=== PATIENT | female | born 1940 | race Caucasian/White ===

== ENCOUNTER 2017-10-06 11:44 | Emergency (ER) | payer MEDICARE ==
--- OUTSIDE RECORDS SUMMARY | 2017-10-06 11:51 | XMS REPORT ---
:1940 External Reference #:[id number] Author Organization [facility] Address [address] [place] [address] Phone [phone] Care Team Providers Name Role Phone Sanam Iglesias Primary Care Physician Unavailable Payers Type Date Identification Numbers Payment Provider Subscriber Medicare Primary Effective: Policy Number: Medicare [place] Alix Mendes 2006 [id number] PayID: [id number] [address] [address] [place] [address] Medigap Part B Policy Number: [facility] Alix Mendes [id number] PayID: [id number] [address] [place] [address] Problems Date Description Provider Status Onset: 09/08/2012 Disorder of bone TERRI Gan Active Family History Date Family Member(s) Problem(s) Comments Father due to s/p fall at age 63 () Mother due to Pneumonia () Number of Children 2 First Daughter A&W Second Daughter A&W Number of Siblings Siblings: 2 First Brother Heart Disease First Brother due to NC () First Brother Lung Cancer First Brother CABG First Brother Back Surgery Second Brother Heart Disease Second Brother CABG Second Brother Back Surgery Second Brother fistula Paternal Grandfather due to Suicide () Paternal Grandmother due to Old Age () Maternal Grandfather due to Unknown Causes () Maternal Grandmother due to Kidney Disease () Social History Type Date Description Comments Education Highest level of education completed is a master's degree Marital Status Patient is Living Situation Lives with spouse Diet Diet is healthy and well balanced 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 Cigarette Use Never smoked cigarettes Alcohol Drinks alcohol occasionally Smoking Patient has never smoked Drug Use Denies drug use Daily Caffeine occ coffee Exercise Type/Frequency Current Exercises regularly Seat Belt/Car Seat Always uses a seat belt Currently Active The patient is currently not sexually active Contraceptive Methods Current methods of control used include tubal ligation STD's No STD history Allergies, Adverse Reactions, Alerts Date Description Reaction Status Severity Comments 05/19/2007 Erythromycin active 11/19/2012 Bee Sting active 09/22/2014 Spider Bites active 08/21/2016 Ticks active Medications Medication Date Status Form Strength Qnty SIG Indications Ordering Provider Premarin 09/26/ Active Cream 0.625mg/G 30gm use at N95.2 Bria 2013 M bedtime 2x qw Nhan, VICTOR MANUEL Aspirin Low 00/ Active Unknown Strength 0000 Magnesium 00/ Active Unknown 0000 Co Q-10 / Active Unknown 0000 Glucosamine / Active Unknown Sulfate Maximum 0000 Potency Vitamin D-1000 / Active Unknown Maximum 0000 Strength Multivitamins 00/ Active Unknown 0000 Diltiazem CD 00/ Active Caps ER 120mg 1 by mouth Unknown 0000 24HR every day Atorvastatin / Active Tablets 40mg 1 by mouth Unknown Calcium 0000 every day Brilinta / Active Unknown 0000 Fosamax 11/29/ Hx Tablets 70mg 12tab Take One Catarina 2013 - Tablet By Jump, 09/22/ Mouth Once ANP-C 2014 Weekly On An Empty Stomach as Directed Physical 03/19/ Hx please 618.01 Catarina Therapy 2012 - evaluate pt Jump, 09/02/ for urge ANP-C 2013 incontinence and ways to cope with this Vagifem 09/26/ Hx Tablets 10mcg 24tab use 1 tablet 627.3 Catarina 2012 - s 2x qw Mari, 09/26/ ANP-C 2012 Estrace 09/09/ Hx Cream 0.1mg/GM 1Tube use 2x q week 627.3 Sharla 2012 - Ortega 09/09/ 2012 Premarin 09/09/ Hx Cream 0.625mg/G 1Tube use hs 2x q 627.3 Sharla 2012 - M week Ortega 09/26/ 2012 Vagifem 09/08/ Hx Tablets 10mcg 24tab use 1 tablet 627.3 Catarina 2012 - s 2x qw , 09/09/ ANP-C 2012 Alendronate 07/22/ Hx Tablets 70mg 12tab take 1 tablet Catarina Sodium 2011 - s by mouth Jump, 11/29/ every week on ANP-C 2013 empty stomach as directed Physical Hx please 788.69 Catarina Therapy 2010 - evaluate and Jump, 07/22/ treat for ANP-C 2010 urinary incontinence. Fosamax 08/16/ Hx Tablets 35mg 1mo 1 po qw Catarina 2009 - , 07/22/ ANP-C 2010 Boniva 07/19/ Hx Tablets 150mg 1tabs 1 po qm Catarina 2009, ANP-C 2009 Actonel 06/27/ Hx Tablets 150mg 1tabs 1 po qm Catarina 2009 - , 07/19/ ANP-C 2009 Actonel 05/21/ Hx Tablets 35mg 12tab 1 po qweek Catarina 2005 - s , 06/27/ ANP-C 2009 Actonel 00/00/ Hx Unknown 2005 Multivitamins 00/00/ Hx Unknown 2009 Calcium 00/00/ Hx Unknown 2007 Calcium With D 00/ Hx Unknown 2014 Fish Oil 00/00/ Hx Unknown 2012 Red Yeast Rice /00/ Hx Unknown 2014 Alendronate // Hx Unknown Sodium 2011 Fish Oil /00/ Hx Unknown 2016 Vitamin D3 00/00/ Hx Unknown 2014 Calcium Citrate 00/00/ Hx Unknown + 2014 Red Yeast Rice 00/00/ Hx Unknown 2016 Brilinta 00/ Hx Tablets 90mg Unknown 2017 Vital Signs Date Vital Result Comment 09/11/2017 BP Systolic 110 mmHg BP Diastolic 70 mmHg Height 59.5 inches 4'11.50" Weight 111.00 lb BMI (Body Mass Index) 22.0 kg/m2 Last Menstrual Period 0231472 2 Parity 2 03/25/2017 BP Systolic 100 mmHg BP Diastolic 58 mmHg Height 59.5 inches 4'11.50" Weight 111.00 lb BMI (Body Mass Index) 22.0 kg/m2 Last Menstrual Period 6315793 2 Parity 2 08/21/2016 BP Systolic 106 mmHg BP Diastolic 60 mmHg Height 59.5 inches 4'11.50" Weight 110.00 lb BMI (Body Mass Index) 21.8 kg/m2 Last Menstrual Period 3944777 2 Parity 2 05/23/2016 BP Systolic 108 mmHg BP Diastolic 62 mmHg Height 59.5 inches 4'11.50" Weight 113.00 lb BMI (Body Mass Index) 22.4 kg/m2 Last Menstrual Period 4745985 2 Parity 2 01/12/2016 BP Systolic 104 mmHg BP Diastolic 62 mmHg Height 59.5 inches 4'11.50" Weight 119.00 lb BMI (Body Mass Index) 23.6 kg/m2 Last Menstrual Period [id number] 2 Parity 2 08/22/2015 BP Systolic 108 mmHg BP Diastolic 68 mmHg Height 59.5 inches 4'11.50" Weight 117.00 lb BMI (Body Mass Index) 23.2 kg/m2 Last Menstrual Period 2426509 2 Parity 2 04/05/2015 BP Systolic 104 mmHg BP Diastolic 66 mmHg Height 59.5 inches 4'11.50" Weight 118.00 lb BMI (Body Mass Index) 23.4 kg/m2 Last Menstrual Period 7673849 2 Parity 2 12/28/2014 BP Systolic 112 mmHg BP Diastolic 64 mmHg Height 59.5 inches 4'11.50" Weight 118.00 lb BMI (Body Mass Index) 23.4 kg/m2 Last Menstrual Period 1620992 2 Parity 2 09/22/2014 BP Systolic 110 mmHg BP Diastolic 60 mmHg Height 59.5 inches 4'11.50" Weight 118.00 lb BMI (Body Mass Index) 23.4 kg/m2 Last Menstrual Period 6759861 2 Parity 2 06/29/2014 BP Systolic 110 mmHg BP Diastolic 62 mmHg Height 59.5 inches 4'11.50" Weight 121.00 lb BMI (Body Mass Index) 24.0 kg/m2 Last Menstrual Period 9669566 2 Parity 2 04/06/2014 BP Systolic 106 mmHg BP Diastolic 66 mmHg Height 59.5 inches 4'11.50" Weight 124.00 lb BMI (Body Mass Index) 24.6 kg/m2 Last Menstrual Period 7909285 2 Parity 2 12/23/2013 BP Systolic 108 mmHg BP Diastolic 60 mmHg Height 59.5 inches 4'11.50" Weight 120.00 lb BMI (Body Mass Index) 23.8 kg/m2 Last Menstrual Period 9604198 2 Parity 2 09/22/2013 BP Systolic 108 mmHg BP Diastolic 70 mmHg Height 59.5 inches 4'11.50" Weight 120.00 lb BMI (Body Mass Index) 23.8 kg/m2 Last Menstrual Period 9355208 2 Parity 2 09/02/2013 BP Systolic 112 mmHg BP Diastolic 66 mmHg Height 59.5 inches 4'11.50" Weight 118.00 lb BMI (Body Mass Index) 23.4 kg/m2 Last Menstrual Period 1306163 2 Parity 2 03/19/2013 BP Systolic 110 mmHg BP Diastolic 68 mmHg Height 59.5 inches 4'11.50" Weight 119.00 lb BMI (Body Mass Index) 23.6 kg/m2 2 Parity 2 11/19/2012 BP Systolic 120 mmHg BP Diastolic 72 mmHg Height 59.5 inches 4'11.50" Weight 119.00 lb BMI (Body Mass Index) 23.6 kg/m2 10/20/2012 BP Systolic 115 mmHg BP Diastolic 62 mmHg Height 59.5 inches 4'11.50" Weight 118.00 lb BMI (Body Mass Index) 23.4 kg/m2 2 Parity 2 09/08/2012 BP Systolic 100 mmHg BP Diastolic 62 mmHg Height 60 inches 5'0" Weight 118.00 lb BMI (Body Mass Index) 23.0 kg/m2 2 Parity 2 08/05/2012 BP Systolic 106 mmHg BP Diastolic 58 mmHg Height 60 inches 5'0" Weight 119.00 lb BMI (Body Mass Index) 23.2 kg/m2 2 Parity 2 07/23/2011 BP Systolic 102 mmHg BP Diastolic 62 mmHg Height 60.0 inches 5'0" Weight 124.00 lb BMI (Body Mass Index) 24.2 kg/m2 2 Parity 2 07/17/2010 BP Systolic 114 mmHg BP Diastolic 76 mmHg Height 60.0 inches 5'0" Weight 122.00 lb BMI (Body Mass Index) 23.8 kg/m2 2 Parity 2 06/27/2009 BP Systolic 102 mmHg BP Diastolic 70 mmHg Height 60.5 inches 5'0.50" Weight 126.00 lb BMI (Body Mass Index) 24.2 kg/m2 Last Menstrual Period 0 1991 2 Parity 2 05/21/2008 BP Systolic 110 mmHg BP Diastolic 70 mmHg Height 60.5 inches 5'0.50" Weight 130.00 lb BMI (Body Mass Index) 25.0 kg/m2 Last Menstrual Period 0 2 Parity 2 05/19/2007 BP Systolic 106 mmHg BP Diastolic 64 mmHg Height 60.5 inches 5'0.50" Weight 128.00 lb BMI (Body Mass Index) 24.6 kg/m2 Last Menstrual Period 0 Yrs Ago 2 Parity 2 12/02/2006 BP Systolic 108 mmHg BP Diastolic 58 mmHg Height 60.5 inches 5'0.50" Weight 127.00 lb BMI (Body Mass Index) 24.4 kg/m2 05/17/2006 BP Systolic 102 mmHg BP Diastolic 60 mmHg Height 60.5 inches 5'0.50" Weight 129.00 lb BMI (Body Mass Index) 24.8 kg/m2 2 Parity 2 04/06/2005 BP Systolic 110 mmHg BP Diastolic 70 mmHg Height 60.5 inches 5'0.50" Weight 126.00 lb BMI (Body Mass Index) 24.2 kg/m2 Last Menstrual Period 0 PT. Menopausal 2 Parity 2 Results Test Date Test Result H/L Range Note Laboratory test finding 04/05/2015 Cytology SEE RESULT BELOW 1 Human Papilloma Virus Rna Negative Negative 2 Laboratory test 07/17/2010 Cytology <SEE 3 finding NOTE> Lipid Profile 04/05/2010 Triglyceride 60 mg/dL 40-200 (Trig/Chol/HDL) Cholesterol 233 mg/dL High Less Than 200 4 High Density Lipoprotein 88 mg/dL High 40-60 5 Cholesterol/HDL Ratio 2.65 AVERAGE 1-4.44 Low Density Lipoprotein 133 mg/dL High Less Than 100 6 Laboratory test finding 06/27/2009 Cytology <SEE NOTE&gt ; 7 Laboratory test finding 05/21/2008 Cytology <SEE NOTE&gt ; 8 Laboratory test finding 05/17/2006 Cytology <SEE NOTE&gt ; 9 1 SEE RESULT BELOW Name: ALIX MENDES : [address]: Catarina Guerra BULLARD OPERATOR Acct: [id number] Unit: [id number] AGE: 74 Location: [facility] Re04/05/15 SEX: F Status: REG REF SPEC: [id number] JED: 04/05/[address]: Catarina Guerra BULLARD OPERATOR REQ: [id number] RECD: 04/05/15 STATUS: SOUT _ ORDERED: IMAGE ANALYSIS, HPV/Thin Prep FINAL DIAGNOSIS Negative for Intraepithelial lesion or Malignancy A. Ectocervical/Endocervical Specimen Adequacy: Satisfactory of evaluation Transformation zone component identified Patient Information: HPV: High risk HPV RNA testing regardless of pap results. Actual Specimen Date: 04/05/15 LMP If Unknown: 1981 Date of Last Specimen: 07/17/10 Post Menopausal?: Y Date Time Test Result Flag (u) Normal Range 04/05/15 1112 HPV RNA Negative Negative The high-risk HPV types detected by the assay include: 16, 18, 31, 33, 35, 39, 45, 51, 52, 56, 58, 59, 66, and 68. Signed (signature on file) Anastacia Evans 04/06/15 1512 This Pap test was evaluated with the assistance of the DNAtriXPrep Test Imaging System. Due to cytologic findings at the cardiology physician microscope, comprehensive manual rescreening by a Furniture Inspector may be required. The Pap Smear is a screening test designed to aid in the detection of premalignant and malignant conditions of the uterine cervix. It is not a diagnostic procedure and should not be used as the sole means of detecting cervical cancer. Both false- positive and false- negative reports do occur. Depending on your risk status, a Pap smear should be obtained and evaluated every 1-3 years. END OF REPORT * ML=Testing performed at [facility] DEPARTMENT OF PATHOLOGY, [address] [place] [address] Aaron Sainz M.D. Director [facility] # [id number] 2 The high-risk HPV types detected by the assay include: 16, 18, 31, 33, 35, 39, 45, 51, 52, 56, 58, 59, 66, and 68. 3 --- RUN DATE: 07/18/10 [facility] NMI LIVE PAGE 1 RUN TIME: 1609 Specimen Inquiry RUN USER: INTERFACE -- Name: ALIX MENDES Status: REG REF Re07/17/10 Age/Sex: 70/F Unit#: [id number] Location: [facility] : 41 -- Specimen: [id number] SOUT Spec Date: 07/17/[address]: Catarina Zuniga mp BULLARD OPERATOR Spec Type: CYTOLOGY Received: 07/18/10-1236 Copies to: SOURCE ECTOCERVICAL/ENDOCERVICAL Thin Prep with Reflex HPV Test PATIENT INFORMATION ACTUAL COLLECTION DATE: 07/17/10 POST MENOPAUSAL? Yes DATE OF PRIOR SPECIMEN: 06/27/09 ADEQUACY OF SPECIMEN Satisfactory for evaluation * Transformation zone component identified * DIAGNOSIS NEGATIVE FOR INTRAEPITHELIAL LESION OR MALIGNANCY * This Pap test was evaluated with the assistance of the DNAtriXPrep Pap Test Imaging System. The Pap Smear is a screening test designed to aid in the detection of premalign ant and malignant conditions of the uterine cervix. It is not a diagnostic procedure a nd should not be used as the sole means of detecting cervical cancer. Both false- positiv e and false-negative reports do occur. Depending on your risk status, a Pap smear awilda uld be obtained and evaluated every one to three years. Initial evaluation performed by Aguilar NOWAK([facility]) 07/18/10 Final Interpretation electronically signed by: Aguilar NOWAK([facility]) 07/18/10 1608 -- -- DEPARTMENT OF PATHOLOGY, [address] [place] [address] [facility] Permit #[id number] Aaron Sainz M.D. Director Rose Mary Maria M.D. Stringed Instrument Repairer Dir alexandra -- 4 CHOLESTEROL INTERPRETATION: Desirable: Less than 200 MG/DL Borderline-High Risk: 200-239 MG/DL High-Risk: 240 MG/DL and over 5 HDL INTERPRETATION: Undesirable: High Risk: Less than 40 MG/DL Desirable: Low Risk: Greater than 60 MG/DL 6 LDL INTERPRETATION: Low Risk Optimal Level: LDL Less than 100 MG/DL Near or Above Optimal: LDL 100-129 MG/DL Borderline High Risk: LDL 130-159 MG/DL High Risk: LDL 160-189 MG/DL Very High Risk: LDL Greater than 189 MG/DL 7 ---- RUN DATE: 06/28/09 [facility] NMI LIVE PAGE 1 RUN TIME: 1238 Specimen Inquiry RUN USER: INTERFACE --- Name: ALIX MENDES Status: REG REF Re06/27/09 Age/Sex: 69/F Unit#: [id number] Location: [facility] : 41 --- Specimen: [id number] SOUT Spec Date: 06/27/[address]: Catarina Zuniga BULLARD OPERATOR Spec Type: CYTOLOGY Received: 06/28/09-30 Copies to: SOURCE ECTOCERVICAL/ENDOCERVICAL Thin Prep with Reflex HPV Test PATIENT INFORMATION ACTUAL COLLECTION DATE: 06/27/09 ? no s/p menopause DATE OF PRIOR SPECIMEN: 05/11/08 PATIENT HISTORY: Last menstrual period 1991 ADEQUACY OF SPECIMEN Satisfactory for evaluation * Transformation zone component cannot be definitely identified due to prese nce * of atrophy or other hormonal changes. * DIAGNOSIS NEGATIVE FOR INTRAEPITHELIAL LESION OR MALIGNANCY * This Pap test was evaluated with the assistance of the DNAtriXPrep Pap Test Imaging System. The Pap Smear is a screening test designed to aid in the detection of premalign ant and malignant conditions of the uterine cervix. It is not a diagnostic procedure a nd should not be used as the sole means of detecting cervical cancer. Both false- positiv e and false-negative reports do occur. Depending on your risk status, a Pap smear awilda uld be obtained and evaluated every one to three years. Final Interpretation electronically signed by: Carolyn TRINIDAD([facility]) 06/28/09 123 8 --- --- DEPARTMENT OF PATHOLOGY, [address] [place] [address] [facility] Permit #[id number] Aki Almeida M.D. Stringed Instrument Repairer Dir alexandra --- 8 --- RUN DATE: 05/24/08 [facility] NMI LIVE PAGE 1 RUN TIME: 1053 Specimen Inquiry RUN USER: INTERFACE -- Name: ALIX MENDES Status: REG REF Re05/21/08 Age/Sex: 68/F Unit#: [id number] Location: [facility] : 41 -- Specimen: [id number] Spec Date: 05/21/[address]: Catarina Zuniga [facility] Spec Type: CYTOLOGY Received: 05/24/08-0850 Copies to: SOURCE ECTOCERVICAL/ENDOCERVICAL Thin Prep with Reflex HPV Test PATIENT INFORMATION ACTUAL COLLECTION DATE: 05/21/08 POST MENOPAUSAL? Yes DATE OF PRIOR SPECIMEN: 05/10/07 ADEQUACY OF SPECIMEN Satisfactory for evaluation * Transformation zone component cannot be definitely identified due to prese nce * of atrophy or other hormonal changes. * DIAGNOSIS NEGATIVE FOR INTRAEPITHELIAL LESION OR MALIGNANCY * This Pap test was evaluated with the assistance of the DNAtriXPrep Pap Test Imaging System. The Pap Smear is a screening test designed to aid in the detection of premalign ant and malignant conditions of the uterine cervix. It is not a diagnostic procedure a nd should not be used as the sole means of detecting cervical cancer. Both false- positive and false-negative reports do occur. Depending on your risk status, a Pap smear awilda uld be obtained and evaluated every one to three years. Final Interpretation electronically signed by: Carolyn TRINIDAD([facility]) 05/24/08 105 3 -- -- DEPARTMENT OF PATHOLOGY, [address] [place] [address] [facility] Permit #[id number] Aaron Sainz M.D. Director Rose Mary Maria M.D. Stringed Instrument Repairer Dir alexandra -- 9 --- RUN DATE: 05/22/06 [facility] NMI LIVE PAGE 1 RUN TIME: 1054 Specimen Inquiry RUN USER: INTERFACE [id number] ALIX MENDES/F <REG REF 05/17> ([id number]) Lyndsey Guevara CNP. -- Specimen: [id number] SOUT Spec Date: 05/17/[address]: Catarina M. Ju mp BULLARD OPERATOR. Spec Type: CYTOLOGY Received: 05/20/06-1207 Copies to: SOURCE ECTOCERVICAL/ENDOCERVICAL Thin Prep with Reflex HPV Test PATIENT INFORMATION ACTUAL COLLECTION DATE: 05/17/06 POST MENOPAUSAL? Yes DATE OF PRIOR SPECIMEN: 04/06/05 ADEQUACY OF SPECIMEN Satisfactory for evaluation * Transformation zone component cannot be definitely identified due to prese nce * of atrophy or other hormonal changes. * DIAGNOSIS NEGATIVE FOR INTRAEPITHELIAL LESION OR MALIGNANCY * The Pap Smear is a screening test designed to aid in the detection of premalign ant and malignant conditions of the uterine cervix. It is not a diagnostic procedure a nd should not be used as the sole means of detecting cervical cancer. Both false- positive and false-negative reports do occur. Depending on your risk status, a Pap smear awilda uld be obtained and evaluated every one to three years. Signed Electronically signed Aguilar NOWAK([facility]) 05/22/06 -- -- DEPARTMENT OF PATHOLOGY, [address] [place] [address] [facility] Permit #[id number] Luis Zhu II, M.D. Director Aaron Sainz M.D. Stringed Instrument Repairer D radhactor -- Procedures Date CPT Code Description Status 06/14/2017 Mammogram Completed 05/06/2011 Colonoscopy Completed 03/28/2005 45144 DO Not Use After 480970 Completed Encounters Type Date Location Provider CPT E/M Dx Office Visit 03/25/2017 9:00a [facility] Catarina Mari, ANP-C 38009 N81.11 N95.2 N81.6 Office Visit 08/21/2016 9:40a [facility] Catarina Mari, ANP-C 36475 Z01.419 N81.6 N81.11 N95.2 Office Visit 05/23/2016 3:20p [facility] Catarina Jump, ANP-C 27977 N95.2 N81.6 N81.11 Office Visit 01/12/2016 3:40p [facility] Catarina Jump, ANP-C 86086 N95.2 N81.6 N81.11 Office Visit 08/22/2015 1:00p [facility] Catarina Jump, ANP-C 44932 N95.2 N81.6 N81.11 Office Visit 04/05/2015 10:40a [facility] Catarina Guerra, ANP-C 00150 Z01.419 N95.2 N81.6 N81.11 Office Visit 12/28/2014 10:40a [facility] Catarina Jump, ANP-C 34330 627.3 618.04 618.01 Office Visit 09/22/2014 10:40a [facility] Catarina Jump, ANP-C 27513 627.3 618.04 618.01 Office Visit 06/29/2014 10:00a [facility] Catarina Jump, ANP-C 18833 627.3 618.04 618.01 Office Visit 04/06/2014 9:20a [facility] Catarina Guerra, ANP-C 64817 627.3 618.04 618.01 Office Visit 12/23/2013 9:40a [facility] Catarina Jump, ANP-C 58697 627.3 618.04 618.01 V58.69 Office Visit 09/22/2013 11:20a [facility] Catarina Jump, ANP-C 83900 627.3 618.04 618.01 Office Visit 09/02/2013 1:00p [facility] Catarina Jump, ANP-C 93376 706.9 Office Visit 03/19/2013 2:00p [facility] Catarina Jump, ANP-C 72205 627.3 618.04 618.01 Office Visit 11/19/2012 9:40a [facility] Catarina Jump, ANP-C 01662 618.01 618.04 627.3 Office Visit 10/20/2012 11:20a [facility] Catarina Jump, ANP-C 55756 618.01 618.04 Office Visit 09/08/2012 1:20p [facility] Catarina Jump, ANP-C 06040 V72.31 627.3 618.01 618.04 733.99 V76.2 V15.89 Office Visit 08/05/2012 9:20a [facility] Catarina Jump, ANP-C 37713 627.3 618.01 618.04 Office Visit 07/17/2010 3:40p [facility] Catarina Jump, ANP-C 65227 V72.31 V76.2 733.99 788.69 V15.89 Office Visit 06/27/2009 1:00p [facility] Catarina Jump, ANP-C 74871 V72.31 V76.2 V15.89 Office Visit 05/21/2008 10:20a [facility] Catarina Jump, ANP-C 47788 V72.31 V76.2 V58.69 V15.89 Office Visit 05/19/2007 1:40p [facility] Catarina Jump, ANP-C 33514 V78.0 V72.31 V15.89 V77.1 Office Visit 12/02/2006 9:40a [facility] Aleida Clifton JR., M.D. 67965 616.10 Office Visit 04/06/2005 3:40p [facility] Catarina Jump, ANP-C 95271 V72.31 V76.2 Office Visit 04/03/2004 3:45p [facility] Catarina Jump, ANP-C 29322 V72.31 Office Visit 03/29/2003 10:00a [facility] TERRI Gan 69569 V72.3 V78.1 Plan of Care 03/25/2017 - MARGARITA GanCN81.11 Cystocele, midlineFollow up:r/v 3 months with N95.2 Postmenopausal atrophic zhboaeufdB19.6 Rectocele
[2017-10-06 11:56] VITALS: BP 100/31
--- NOTE | 2017-10-06 12:48 | UC ---
Roderick Hewitt Gabriel, scribed for PrashantTres loera MD on 10/06/17 at 1238 . Skin Complaint HPI - HPI Summary HPI Summary: This patient is a 77 year old F presenting to [facility] accompanied by her daughter s/p bug bite that occurred yesterday while she was gardening. The patient rates the pain 1/10 in severity. Patient reports swelling and erythema to the affected area. Patient denies other complaints. Hx DC - History of Current Complaint Chief Complaint: UCUpperExtremity Time Seen by Provider: 10/06/17 12:24 Stated Complaint: HAND PAIN Hx Obtained From: Patient Onset/Duration: Still Present Skin Exposure Onset/Duration: Days Ago - 1 Timing: Constant Onset Severity: Mild Current Severity: Mild Pain Intensity: 1 Pain Scale Used: 0-10 Numeric Location: Hand (Right) Character: Redness, Raised Associated Signs & Symptoms: Positive: Negative - fever - Allergy/Home Medications Allergies/Adverse Reactions: Allergies Allergy/AdvReac Type Severity Reaction Status Date / Time bee venom protein (honey bee) Allergy Swelling Verified 10/06/17 11:56 erythromycin base Allergy Itching Verified 10/06/17 11:56 SPIDERS Allergy Swelling Uncoded 10/06/17 11:56 Review of Systems Constitutional: Negative - fever Skin: Other - bug bite, swelling, and redness All Other Systems Reviewed And Are Negative: Yes - Comments Additional Review of Systems Comments: Positive: bug bite, swelling, and erythema. Negative fever PMH/Surg Hx/FS Hx/Imm Hx Cardiovascular History: Myocardial Infarction, Congestive Heart Failure Other History Of: Anticoagulant Therapy - plavix, asa - Surgical History Surgical History: Yes Surgery Procedure, Year, and Place: GALL BLADDER REMOVED- 20 YEARS AGO- [facility]. - ACL RECONSTRUCTION LEFT KNEE- [facility]. TONSILLECTOMY- A CHILD-. cataract surgery- May and Jun - Family History Known Family History: Positive: Cardiac Disease, Hypertension Family History: brothers with CAD and CABG - Social History Alcohol Use: Occasionally Alcohol Amount: a glass of wine Substance Use Type: None Smoking Status (MU): Never Smoked Tobacco - Immunization History Most Recent Influenza Vaccination: 2016 Most Recent Tetanus Shot: within 10 years Most Recent Pneumonia Vaccination: 2014 Physical Exam - Summary Physical Exam Summary: Appearance: The patient is well-appearing, is in no pain distress, and is well- nourished. Eyes: Conjunctiva are clear. ENT: The hearing is grossly normal, the pharynx is normal, and the TMs are normal. There is no muffled or hoarse voice. Neck: The neck is supple and there is no lymphadenopathy. Respiratory: The chest is nontender. The lungs are clear, there are normal breath sounds, and there is no respiratory distress. Cardiovascular: Heart is regular rate and rhythm. There is no murmur. Abdomen: The abdomen is soft and nontender. There is no organomegaly. Bowel sounds: present Musculoskeletal: Strength is intact. The patient moves all extremities. Neurological: The patient is alert. Psychological: The patient displays age appropriate behavior Skin: Negative for rashes. RIGHT WRIST AND HAND SHOWS A SMALL 1CM CRUSTED AREA AT THE BASE OF THE RIGHT THUMB WITH MILD SWELLING AND ERYTHEMA OVER THE DORSUM OF THE METACARPAL. NOTED: SMALL 2.5CM PATCH OF REDNESS ON THE VOLAR ASPECT THAT IS 4 CM PROXIMAL TO THE WRIST CREASE Triage Information Reviewed: Yes Vital Signs: Initial Vital Signs Temp 97.3 F 10/06/17 11:51 Pulse 61 10/06/17 11:51 Resp 18 10/06/17 11:51 BP 100/31 10/06/17 11:51 Pulse Ox 98 10/06/17 11:51 Vital Signs Reviewed: Yes Course/Dx - Course Course Of Treatment: The patient is a 77 y/o female with right hand swelling and redness after was bitten by something while gardening. I explained the possibility of an allergic or beginning of a skin infection. I will treat with Keflex 3 times a day for 5 days and she will follow up with her PCP in 3 days. Medications have been included in the original chart and reviewed. - Differential Diagnoses - Skin Complaint Differential Diagnoses: Allergic Reaction, Cellulitis - Diagnoses Provider Diagnoses: cellulitis dorsum of right hand Discharge - Sign-Out/Discharge Documenting (check all that apply): Discharge/Admit/Transfer - Discharge Plan Condition: Stable Disposition: HOME Prescriptions: Cephalexin CAP* [Keflex 500 CAP*] 500 mg PO TID #15 cap Patient Education Materials: Cellulitis (ED) Referrals: Sanam Iglesias MD [Primary Care Provider] - Additional Instructions: WE DISCUSSED: 1. You may have an allergic reaction or a skin infection. 2. Warm moist heat to area for 10 minutes every 2 hours. 3. Begin Keflex, 4 times a day for 5 days. 4. Recheck at any time if getting worse. Otherwise, follow up as planned in 3 days. - Billing Disposition and Condition Condition: STABLE Disposition: HOME The documentation as recorded by the Roderick saunders Gabriel accurately reflects the service I personally performed and the decisions made by me, Tres Draper MD.
== END 2017-10-06 12:57 | disposition home or self-care (01) ==
LOC: UCEAST 11:44
DX: S60.561A Insect bite (nonvenomous) of right hand, initial encounter (principal); L03.113 Cellulitis of right upper limb; W57.XXXA Bitten or stung by nonvenomous insect and other nonvenomous arthropods, initial encounter; Y93.H2 Activity, gardening and landscaping; Y92.9 Unspecified place or not applicable; I25.2 Old myocardial infarction; I50.9 Heart failure, unspecified; Z79.01 Long term (current) use of anticoagulants; Z79.82 Long term (current) use of aspirin; Z88.1 Allergy status to other antibiotic agents; Z91.030 Bee allergy status; Z82.49 Family history of ischemic heart disease and other diseases of the circulatory system
CPT/HCPCS: 99212; G0463